=== PATIENT | male | born 1945 | race Caucasian/White ===

== ENCOUNTER 2017-06-06 15:01 | Inpatient (IN) | payer OTHER ==
--- NOTE | 2017-06-06 15:12 | PDOC ---
History of Present Illness - General Chief Complaint: Pain Stated Complaint: PAIN Time Seen by Provider: 06/06/17 15:12 Past History - Past Medical History Allergies/Adverse Reactions: Allergies Allergy/AdvReac Type Severity Reaction Status Date / Time No Known Allergies Allergy Verified 11/19/15 18:04 Home Medications: Ambulatory Orders Folic Acid - 1 mg PO DAILY #0 tablet 03/26/13 Aspirin [ASA -] 81 mg PO DAILY #0 12/04/14 Acetaminophen [Extra Strength Non-Aspirin] 500 mg PO QID PRN 11/17/15 Albuterol Sulfate [Proair Hfa -] 1 - 2 inh PO QID PRN 11/17/15 Clotrimazole/Betamet Diprop [Lotrisone -] 1 applic TP BID 11/17/15 Ergocalciferol (Vitamin D2) [Drisdol] 50,000 units PO WEEKLY 11/17/15 Guaifenesin [Mucinex] 1,200 mg PO Q12H PRN 11/17/15 Meloxicam [Mobic] 15 mg PO DAILY 11/17/15 Mometasone/Formoterol [Dulera 200 Mcg/5 Mcg Inhaler] 2 inh IH BID 11/17/15 Roflumilast [Daliresp] 500 mcg PO DAILY 11/17/15 Simvastatin [Zocor -] 20 mg PO DAILY 11/17/15 Tramadol HCl 50 mg PO TID #10 tablet 11/18/15 Tiotropium [place] [Spiriva Respimat] 2.5 mcg IH DAILY 11/20/15 Vitamin B Complex 1 each PO DAILY 11/20/15 Anemia: No Asthma: Yes Cancer: No (Prostate) Cardiac Disorders: Yes CVA: Yes (with speech problems.) COPD: Yes CHF: No Dementia: No Diabetes: No GI Disorders: No Disorders: No HTN: Yes Hypercholesterolemia: Yes Liver Disease: No Seizures: No Thyroid Disease: No - Surgical History Abdominal Surgery: Yes (hernia) Appendectomy: No Cardiac Surgery: No Cholecystectomy: No Lung Surgery: No Neurologic Surgery: No Orthopedic Surgery: Yes (R hip replacement in 2012.) - Immunization History Td Vaccination: Yes Immunization Up to Date: Yes - Psycho/Social/Smoking Cessation Hx Anxiety: No Suicidal Ideation: No Smoking Status: Yes Smoking History: Current every day smoker Have you smoked in the past 12 months: Yes Number of Cigarettes Smoked Daily: 10 'Breaking Loose' booklet given: 11/20/15 Hx Alcohol Use: Yes ("once and awhile now 1 or 2 beers") Drug/Substance Use Hx: No Substance Use Type: None Hx Substance Use Treatment: No
--- NOTE | 2017-06-06 15:19 | PDOC ---
History of Present Illness - General Chief Complaint: Pain Stated Complaint: PAIN Time Seen by Provider: 06/06/17 15:12 History Source: Patient, Significant Other - History of Present Illness Initial Comments: 06/06/17 16:39 Interview notable for being mostly handled by patient's girlfriend who is in total control of the patient care. Answers for him every question, claims that his dementia prevents him from answering truthfully and adequately. She was repeatedly asked to let the patient respond. 71M with pmh of cva x3, COPD-emphysema, metastatic prostate cancer s/p right hip endochondroma surgery, [place], HLD and hernia repair x2 as well as sigmoid diverticulosis ,presents for change in stool texture, dehydration, and right hip pain. 06/06/17 18:05 Past History - Past Medical History Allergies/Adverse Reactions: Allergies Allergy/AdvReac Type Severity Reaction Status Date / Time No Known Allergies Allergy Verified 06/06/17 15:23 Home Medications: Ambulatory Orders Folic Acid - 1 mg PO DAILY #0 tablet 03/26/13 Aspirin [ASA -] 81 mg PO DAILY #0 12/04/14 Acetaminophen [Extra Strength Non-Aspirin] 500 mg PO QID PRN 11/17/15 Albuterol Sulfate [Proair Hfa -] 1 - 2 inh PO QID PRN 11/17/15 Ergocalciferol (Vitamin D2) [Drisdol] 50,000 units PO WEEKLY 11/17/15 Meloxicam [Mobic] 15 mg PO DAILY 11/17/15 Mometasone/Formoterol [Dulera 200 Mcg/5 Mcg Inhaler] 2 inh IH BID 11/17/15 Roflumilast [Daliresp] 500 mcg PO DAILY 11/17/15 Simvastatin [Zocor -] 20 mg PO DAILY 11/17/15 Tiotropium [place] [Spiriva Respimat] 2.5 mcg IH DAILY 11/20/15 Vitamin B Complex 1 each PO DAILY 11/20/15 Tramadol HCl 50 mg PO TID PRN 06/06/17 Anemia: No Asthma: Yes Cancer: No (Prostate) Cardiac Disorders: Yes CVA: Yes (with speech problems.) COPD: Yes CHF: No Dementia: No Diabetes: No GI Disorders: No Disorders: No HTN: Yes Hypercholesterolemia: Yes Liver Disease: No Seizures: No Thyroid Disease: No - Surgical History Abdominal Surgery: Yes (hernia) Appendectomy: No Cardiac Surgery: No Cholecystectomy: No Lung Surgery: No Neurologic Surgery: No Orthopedic Surgery: Yes (R hip replacement in 2012.) - Immunization History Td Vaccination: Yes Immunization Up to Date: Yes - Psycho/Social/Smoking Cessation Hx Anxiety: No Suicidal Ideation: No Smoking Status: Yes Smoking History: Current every day smoker Have you smoked in the past 12 months: Yes Number of Cigarettes Smoked Daily: 10 'Breaking Loose' booklet given: 11/20/15 Hx Alcohol Use: Yes ("once and awhile now 1 or 2 beers") Drug/Substance Use Hx: No Substance Use Type: None Hx Substance Use Treatment: No ED Treatment Course - LABORATORY CBC & Chemistry Diagram: 06/06/17 16:05 06/06/17 16:05
[2017-06-06 15:26] VITALS: BMI 18.7
--- NOTE | 2017-06-06 16:02 | PDOC ---
Attending Attestation - Resident Resident Name: Villa Shaffer - ED Attending Attestation I have performed the following: I have examined & evaluated the patient, The case was reviewed & discussed with the resident, I agree w/resident's findings & plan, Exceptions are as noted - HPI HPI: The patient is a 71 yo M with a past medical history of multiple CVA events, femur fracture with right hip replacement presents with right hip pain s/p hip replacement surgery. As per the patients , she is overwhelmed taking care of the patient at home. She states the patient was recently admitted to [facility] but was discharged even though she is unable to care for him. The also states the patient is experiencing R hip pain but doesnt ask his PCP for pain medications. She states the patient is still able to make his own decisions and he doesnt want a home health aide. The patient denies chest pain, palpitations and lightheadedness. The patient denies nausea, vomiting, diarrhea and abdominal pain. PCP: Dr. Bloom - Physicial Exam PE: GENERAL: Awake, alert, and fully oriented, in no acute distress HEAD: No signs of trauma EYES: PERRLA, EOMI, sclera anicteric, conjunctiva clear ENT: Auricles normal inspection, hearing grossly normal, nares patent, oropharynx clear without exudates. Moist mucosa NECK: Normal ROM, supple, no lymphadenopathy, JVD, or masses LUNGS: Breath sounds equal, clear to auscultation bilaterally. No wheezes, and no crackles HEART: Regular rate and rhythm, normal S1 and S2, no murmurs, rubs or gallops ABDOMEN: Soft, nontender, normoactive bowel sounds. No guarding, no rebound. No masses EXTREMITIES: Normal range of motion, no edema. No clubbing or cyanosis. No cords, erythema. Tenderness to palpation of R hip. NEUROLOGICAL: Cranial nerves II through XII grossly intact. Normal speech, normal gait SKIN: Warm, Dry, normal turgor, no rashes or lesions noted. - Medical Decision Making Documentation prepared by Jackie Hilton, acting as certified medical coder for Con Noble MD/DO. <Jackie Hilton - Last Filed: 06/06/17 17:10> - Resident Resident Name: Villa Shaffer - ED Attending Attestation I have performed the following: I have examined & evaluated the patient, The case was reviewed & discussed with the resident, I agree w/resident's findings & plan, Exceptions are as noted - HPI HPI: 06/06/17 16:13 - Physicial Exam PE: 06/06/17 19:48 Right Hip Pain with range of motion and palpation, loose cough, coarse rhonchi. - Medical Decision Making 06/06/17 19:[address] Shaffer's Assessment and Plan, Patient's girlfriend is unable to care for him at home, they have no outside help, they have no family to help, he is falling more often and she is afraid to leave him alone and she just can' t manage him anylonger. 06/06/17 19:[address] Denis, who ask that we work the patient up completely and admit to Dr. Bloom. I subsequently spoke to Dr. Carnes, will admit to his serve and obtain CT Hip on the way to the floor. 06/06/17 19:59 Case discussed with both patient and his girlfriend and it is apparent to me that his dementia is worsening and he may not actually be able to make medical decisions any longer..... he can't remember much and he can't seem to tell time - how long he has been in a certain space. His hip pain is limiting his mobility and putting him at risk for falls. He may need both mental health and physical therapy evaluations as well as urologic and orthopedic consultations. 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 transplanted heart: [place] heart Associated angina: without angina Qualified Code(s): I25.10 - Atherosclerotic heart disease of [place] coronary artery without angina pectoris COPD (chronic obstructive pulmonary disease) Qualifiers: COPD type: unspecified COPD Qualified Code(s): J44.9 - Chronic obstructive pulmonary disease, unspecified - Discharge Dispostion Condition at time of disposition: Unchanged/Unknown - Referrals Referrals: Claude Bradshaw MD [Primary Care Provider] -
[2017-06-06] MEDS ORDERED: SODIUM CHLORIDE 1,000 ML IV STA (16:09)
[2017-06-06 16:10] LABS: BASOPHIL 0.9 % (0-2.0); EOSINOPHIL 2.3 % (0-4.5); MCH 29.2 pg (25.7-33.7); MCHC 32.9 g/dl (32.0-35.9); MEAN CELL VOLUME 88.7 fl (80-96); MEAN PLT VOLUME 8.8 fl (7.5-11.1); NEUTROPHILS 58.7 % (42.8-82.8); PLATELET COUNT 172 K/MM3 (134-434); RDW 16.4 % (11.9-15.9); WHITE BLOOD COUNT 5.5 K/mm3 (4.0-10.0)
[2017-06-06 16:37] LABS: ALBUMIN 3.9 g/dl (3.4-5.0); ALK PHOS 136 U/L (45-117); ANION GAP 10 (8-16); BILIRUBIN,TOTAL 0.3 mg/dL (0.2-1.0); CALCIUM 9.4 mg/dL (8.5-10.1); CO2 29 mmol/L (21-32); CREATININE 0.9 mg/dL (0.7-1.3); GLUCOSE,RANDOM 104 mg/dL (74-106); SGOT/AST 8 U/L (15-37); SGPT/ALT 19 U/L (12-78); TOT PROT 7.2 g/dl (6.4-8.2)
[2017-06-06 17:41] LABS: URINE APPEARANCE CLEAR; URINE BILIRUBIN NEGATIVE (NEGATIVE); URINE BLOOD NEGATIVE (NEGATIVE); URINE COLOR LTYELLOW; URINE GLUCOSE (UA) NEGATIVE (NEGATIVE); URINE KETONE NEGATIVE (NEGATIVE); URINE LEUK ESTERASE NEGATIVE (NEGATIVE); URINE NITRITE NEGATIVE (NEGATIVE); URINE PROTEIN NEGATIVE (NEGATIVE); URINE UROBILINOGEN NEGATIVE mg/dL (0.2-1.0)
[2017-06-06 18:10] LABS: URINE MARIJUANA THC NEGATIVE ng/ml (CUTOFF=50)
[2017-06-06 19:15] LABS: CALCIUM 9.5 mg/dL (8.5-10.1); PHOSPHOROUS 3.5 mg/dL (2.5-4.9)
[2017-06-06] MEDS ORDERED: ACETAMINOPHEN 325 MG TABLET (FP) PO PRN (20:19)
[2017-06-06] MEDS ORDERED: KETOROLAC TROMETHAMINE 30 MG/1 ML VIAL IVPUSH SCH (20:30)
[2017-06-06] MEDS: BUDESONIDE/FORMETEROL FUMARATE 80/4.5 mcg INHALER IH SCH (23:30)
[2017-06-07 07:50] LABS: MCH 28.7 pg (25.7-33.7); MCHC 32.9 g/dl (32.0-35.9); MEAN CELL VOLUME 87.3 fl (80-96); MEAN PLT VOLUME 9.2 fl (7.5-11.1); PLATELET COUNT 169 K/MM3 (134-434); RDW 16.3 % (11.9-15.9); WHITE BLOOD COUNT 7.3 K/mm3 (4.0-10.0)
[2017-06-07 08:03] LABS: ALBUMIN 3.7 g/dl (3.4-5.0); ANION GAP 5 (8-16); CALCIUM 9.5 mg/dL (8.5-10.1); CO2 31 mmol/L (21-32); CREATININE 0.7 mg/dL (0.7-1.3); GLUCOSE,RANDOM 81 mg/dL (74-106); SGOT/AST 9 U/L (15-37); SGPT/ALT 19 U/L (12-78)
[2017-06-07 08:04] LABS: ALK PHOS 134 U/L (45-117); BILIRUBIN,TOTAL 0.6 mg/dL (0.2-1.0); TOT PROT 6.6 g/dl (6.4-8.2)
[2017-06-07] MEDS ORDERED: PT OWN MED DRAWER 7, Y5N ONE (09:50)
[2017-06-07] MEDS: ROFLUMILAST 500 MCG TABLET PO SCH (11:09)
[2017-06-07] MEDS: BUDESONIDE/FORMETEROL FUMARATE 80/4.5 mcg INHALER IH SCH ×2 (11:09→21:47)
[2017-06-07] MEDS: ASPIRIN COATED 81 MG TABLET.EC PO SCH (11:10)
[2017-06-07] MEDS: TIOTROPIUM BROMIDE 18 MCG/INH (DEVICE W/ 5 CAPSULES) IH SCH (11:10)
--- NOTE | 2017-06-07 11:30 | HP ---
Admitting History and Physical - Primary Care Physician PCP: Claude Bradshaw I - Admission History of Present Illness: 71M with pmh of cva x3, COPD-emphysema, metastatic prostate cancer s/p right hip surgery right hip endochrondroma and replacement, [place], HLD and hernia repair x2 as well as sigmoid diverticulosis ,presents for right hip pain.patient was at [facility] for rehab after the hip surgery per patient he says the pain in right hip and leg started a week a ago and then it got severe so he came to ER patient not able to tell me too much more information i called the and she says that he having right hip and leg pain and per he was having loose stools and low grade temp as home ,she states that everytime he eats he has loose bm no nausea no abdominal pain. today patient complaining of right hip pain History Source: Patient, Family Member Limitations to Obtaining History: Poor Historian - Past Medical History REPORTING DEVELOPER: Yes: CVA Cardiovascular: Yes: Hyperlipdemia, [place] Pulmonary: Yes: Asthma, COPD Renal/: Yes: Cancer (prostate) - Smoking History Smoking history: Current every day smoker Have you smoked in the past 12 months: Yes Aproximately how many cigarettes per day: 4 - Alcohol/Substance Use Hx Alcohol Use: Yes ("once and awhile now 1 or 2 beers") History of Substance Use: reports: None - Social History ADL: Family Assistance History of Recent Travel: No Home Medications - Allergies Allergies/Adverse Reactions: Allergies Allergy/AdvReac Type Severity Reaction Status Date / Time No Known Allergies Allergy Verified 06/06/17 15:23 - Home Medications Home Medications: Ambulatory Orders Folic Acid - 1 mg PO DAILY #0 tablet 03/26/13 Aspirin [ASA -] 81 mg PO DAILY #0 12/04/14 Acetaminophen [Extra Strength Non-Aspirin] 500 mg PO QID PRN 11/17/15 Albuterol Sulfate [Proair Hfa -] 1 - 2 inh PO QID PRN 11/17/15 Ergocalciferol (Vitamin D2) [Drisdol] 50,000 units PO WEEKLY 11/17/15 Meloxicam [Mobic] 15 mg PO DAILY 11/17/15 Mometasone/Formoterol [Dulera 200 Mcg/5 Mcg Inhaler] 2 inh IH BID 11/17/15 Roflumilast [Daliresp] 500 mcg PO DAILY 11/17/15 Simvastatin [Zocor -] 20 mg PO DAILY 11/17/15 Tiotropium [place] [Spiriva Respimat] 2.5 mcg IH DAILY 11/20/15 Vitamin B Complex 1 each PO DAILY 11/20/15 Tramadol HCl 50 mg PO TID PRN 06/06/17 Review of Systems - Review of Systems Musculoskeletal: reports: Other (right hip pain) Physical Examination Vital Signs: Vital Signs Temperature 98.3 F 06/07/17 09:48 Pulse Rate 73 06/07/17 09:48 Respiratory Rate 18 06/07/17 09:48 Blood Pressure 104/53 06/07/17 09:48 O2 Sat by Pulse Oximetry (%) 99 06/06/17 22:35 Constitutional: Yes: Calm, Thin Neck: Yes: Trachea Midline Cardiovascular: Yes: Regular Rate and Rhythm, S1, S2 Respiratory: Yes: CTA Bilaterally Gastrointestinal: Yes: Normal Bowel Sounds, Soft Musculoskeletal: Yes: Other (right hip tenderness on palpation) Edema: No Neurological: Yes: Alert, Oriented Labs: CBC, BMP 06/07/17 06:30 06/07/17 06:30 Imaging - Results X-ray: Report Reviewed Cat Scan: Report Reviewed Problem List - Problems (1) Hip pain, right Assessment/Plan: ortho eval PT eval as well Code(s): M25.551 - PAIN IN RIGHT HIP (2) Prostate CA Assessment/Plan: check PSA Code(s): C61 - MALIGNANT NEOPLASM OF PROSTATE (3) COPD (chronic obstructive pulmonary disease) Assessment/Plan: bronchodilators Code(s): J44.9 - CHRONIC OBSTRUCTIVE PULMONARY DISEASE, UNSPECIFIED Qualifiers : COPD type: unspecified COPD Qualified Code(s): J44.9 - Chronic obstructive pulmonary disease, unspecified (4) Coronary artery disease Assessment/Plan: aspirin Code(s): I25.10 - ATHSCL HEART DISEASE OF [place] CORONARY ARTERY W/O ANG PCTRS Qualifiers: Coronary Disease-Associated Artery/Lesion type: unspecified vessel or lesion type [place] vs. transplanted heart: [place] heart Associated angina: without angina Qualified Code(s): I25.10 - Atherosclerotic heart disease of [place] coronary artery without angina pectoris Assessment/Plan will monitor for loose BM SCD to both legs for dvt ppx
--- NOTE | 2017-06-07 17:17 | PN ---
Progress Note (short form) - Note Progress Note: Pt seen and examined. He is a 71 yo Male pt with metastatic prostate CA who c/o 1-2 weeks of increasing right hip pain. Denies and recent h/o trauma, or infection. He had a right THR at [facility] by Dr Ivye this year, 2016. He did well post op, no complications, was feeling great until 1-2 weeks ago.He was having significant pain with ambulation. Now he states his pain is much better, he is able to ambulate. PE RLE looks fine, no malangulation, shortening, or malrotation. No signs of trauma. NVI Good, pain free ROM at the right hip, knee, ankle, foot. Strength of RLE good. Incisions well healed. The pt has significant tenderness over the right hip bursa. Xrays Look good. A right THR prosthesis is in a good position, no obvious loosening, no obvious lytic lesions or signs of metastatic perprosthetic involvement. Imp Acute right hip bursitis. Rec We will try to avoid the right hip bursa cortisone injection if possible. P.T. PRN, WBAT. The pt can be DC'd as per ortho pov, NTD. F/U with Dr Ivey as an out pt.
[2017-06-07] MEDS: HEPARIN NA (PORCINE) 5,000 UNITS/ML 1ML VIAL SQ SCH (21:47)
[2017-06-07] MEDS: traMADol HCL 50 MG TABLET PO PRN (21:47)
[2017-06-07] MEDS: ATORVASTATIN CA 20 MG TABLET (FP) PO SCH (21:48)
--- NOTE | 2017-06-08 08:25 | PN ---
Progress Note, Physician History of Present Illness: SITTING IN CHAIR - Current Medication List Current Medications: Active Medications Acetaminophen (Tylenol -) 650 mg PO Q6H PRN PRN Reason: FEVER OR PAIN Aspirin (Ecotrin -) 81 mg PO DAILY [facility] Last Admin: 06/07/17 11:10 Dose: 81 mg Atorvastatin Calcium (Lipitor -) 20 mg PO HS [facility] Last Admin: 06/07/17 21:48 Dose: 20 mg Budesonide/Formoterol Fumarate (Symbicort 80/4.5mcg -) 2 puff IH BID [facility] Last Admin: 06/07/17 21:47 Dose: 2 puff Heparin Sodium (Porcine) (Heparin -) 5,000 unit SQ BID [facility] Last Admin: 06/07/17 21:47 Dose: 5,000 unit Roflumilast (Daliresp -) 500 mcg PO DAILY [facility] Last Admin: 06/07/17 11:09 Dose: 500 mcg Tiotropium [place] (Spiriva -) 1 puff IH DAILY [facility] Last Admin: 06/07/17 11:10 Dose: 1 puff Tramadol HCl (Ultram -) 50 mg PO Q8H PRN PRN Reason: PAIN Last Admin: 06/07/17 21:47 Dose: 50 mg - Objective Vital Signs: Vital Signs Temperature 97.9 F 06/08/17 06:00 Pulse Rate 66 06/08/17 06:00 Respiratory Rate 19 06/08/17 06:00 Blood Pressure 119/62 06/08/17 06:00 O2 Sat by Pulse Oximetry (%) 95 06/07/17 20:50 Cardiovascular: Yes: Regular Rate and Rhythm Respiratory: Yes: Regular, CTA Bilaterally Gastrointestinal: Yes: Normal Bowel Sounds, Soft Labs: CBC, BMP 06/07/17 06:30 06/07/17 06:30 Assessment/Plan - Problems (1) Hip pain, right Assessment/Plan: ortho eval noted-- PT eval as well Code(s): M25.551 - PAIN IN RIGHT HIP (2) Prostate CA Assessment/Plan: check PSA Code(s): C61 - MALIGNANT NEOPLASM OF PROSTATE (3) COPD (chronic obstructive pulmonary disease) Assessment/Plan: bronchodilators Code(s): J44.9 - CHRONIC OBSTRUCTIVE PULMONARY DISEASE, UNSPECIFIED Qualifiers : COPD type: unspecified COPD Qualified Code(s): J44.9 - Chronic obstructive pulmonary disease, unspecified (4) Coronary artery disease Assessment/Plan: aspirin Code(s): I25.10 - ATHSCL HEART DISEASE OF [place] CORONARY ARTERY W/O ANG PCTRS Qualifiers: Coronary Disease-Associated Artery/Lesion type: unspecified vessel or lesion type [place] vs. transplanted heart: [place] heart Associated angina: without angina Qualified Code(s): I25.10 - Atherosclerotic heart disease of [place] coronary artery without angina pectoris Assessment/Plan will monitor for loose BM
--- NOTE | 2017-06-08 09:19 | PN ---
Progress Note (short form) - Note Progress Note: Pt feels better this morning, less pain in the right hip area both sitting and with weight bearing. He is able to ambulate with a walker without a significant amount of pain. Plan: He is being DC'd today. He will con't WBAT with walker. He will F/U with Dr Ivey this week or next.
[2017-06-08] MEDS ORDERED: PT OWN MED DRAWER 7, Y5N ONE (09:55)
[2017-06-08] MEDS: ASPIRIN COATED 81 MG TABLET.EC PO SCH (09:56)
[2017-06-08] MEDS: HEPARIN NA (PORCINE) 5,000 UNITS/ML 1ML VIAL SQ SCH ×2 (09:56→21:37)
[2017-06-08] MEDS: BUDESONIDE/FORMETEROL FUMARATE 80/4.5 mcg INHALER IH SCH ×2 (09:56→21:37)
[2017-06-08] MEDS: TIOTROPIUM BROMIDE 18 MCG/INH (DEVICE W/ 5 CAPSULES) IH SCH (09:56)
[2017-06-08] MEDS: ROFLUMILAST 500 MCG TABLET PO SCH (09:56)
[2017-06-08] MEDS: traMADol HCL 50 MG TABLET PO PRN (21:37)
[2017-06-08] MEDS: ATORVASTATIN CA 20 MG TABLET (FP) PO SCH (21:37)
[2017-06-09] MEDS: ASPIRIN COATED 81 MG TABLET.EC PO SCH (09:41)
[2017-06-09] MEDS: HEPARIN NA (PORCINE) 5,000 UNITS/ML 1ML VIAL SQ SCH ×2 (09:41→21:40)
[2017-06-09] MEDS: ROFLUMILAST 500 MCG TABLET PO SCH (09:41)
[2017-06-09] MEDS: BUDESONIDE/FORMETEROL FUMARATE 80/4.5 mcg INHALER IH SCH ×2 (09:41→21:40)
[2017-06-09] MEDS: TIOTROPIUM BROMIDE 18 MCG/INH (DEVICE W/ 5 CAPSULES) IH SCH (09:42)
--- NOTE | 2017-06-09 10:42 | DS ---
Physical Examination Vital Signs: Vital Signs Temperature 97.6 F 06/09/17 06:24 Pulse Rate 61 06/09/17 09:19 Respiratory Rate 18 06/09/17 09:19 Blood Pressure 111/58 06/09/17 09:19 O2 Sat by Pulse Oximetry (%) 97 06/08/17 20:55 awake alert oriented no distress Constitutional: Yes: Calm, Thin Cardiovascular: Yes: Regular Rate and Rhythm, S1, S2 Respiratory: Yes: CTA Bilaterally Gastrointestinal: Yes: Normal Bowel Sounds, Soft Edema: No Neurological: Yes: Alert, Oriented Labs: CBC, BMP 06/07/17 06:30 06/07/17 06:30 Discharge Summary Reason For Visit: INTRACTABLE PAIN,ARTHRALGIA OF HIP,DYSPHAGIA Current Active Problems Generalized muscle weakness (Acute) Hip pain, right (Acute) Intractable pain (Acute) Asthma (Chronic) COPD (chronic obstructive pulmonary disease) (Chronic) Coronary artery disease (Chronic) Dysarthria as late effect of cerebrovascular accident (CVA) (Chronic) 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) (Chronic) HLD (hyperlipidemia) (Chronic) Prostate CA (Chronic) Hospital Course: PCP: Claude Bradshaw I - Admission History of Present Illness: 71M with pmh of cva x3, COPD-emphysema, metastatic prostate cancer s/p right hip surgery right hip endochrondroma and replacement, [place], HLD and hernia repair x2 as well as sigmoid diverticulosis ,presents for right hip pain.patient was at [facility] for rehab after the hip surgery per patient he says the pain in right hip and leg started a week a ago and then it got severe so he came to ER patient not able to tell me too much more information i called the and she says that he having right hip and leg pain and per he was having loose stools and low grade temp as home ,she states that everytime he eats he has loose bm no nausea no abdominal pain. today patient complaining of right hip pain History Source: Patient, Family Member Limitations to Obtaining History: Poor Historian - Past Medical History EDUCATIONAL TECHNOLOGY SPECIALIST: Yes: CVA Cardiovascular: Yes: Hyperlipdemia, [place] Pulmonary: Yes: Asthma, COPD pateint had no loose BM during hospital stay seen by ortho right hip bursitis, feeling better seen by ortho much WBAT, xray of hip and CT scan done - s/p Right THR plan to go for rehab Condition: Improved - Instructions Referrals: Claude Bradshaw MD [Primary Care Provider] - Disposition: [facility] F[facility]ILITY - Home Medications Comprehensive Discharge Medication List: Ambulatory Orders Folic Acid - 1 mg PO DAILY #0 tablet 03/26/13 Aspirin [ASA -] 81 mg PO DAILY #0 12/04/14 Acetaminophen [Extra Strength Non-Aspirin] 500 mg PO QID PRN 11/17/15 Albuterol Sulfate [Proair Hfa -] 1 - 2 inh PO QID PRN 11/17/15 Ergocalciferol (Vitamin D2) [Drisdol] 50,000 units PO WEEKLY 11/17/15 Meloxicam [Mobic] 15 mg PO DAILY 11/17/15 Mometasone/Formoterol [Dulera 200 Mcg/5 Mcg Inhaler] 2 inh IH BID 11/17/15 Roflumilast [Daliresp] 500 mcg PO DAILY 11/17/15 Simvastatin [Zocor -] 20 mg PO DAILY 11/17/15 Tiotropium [place] [Spiriva Respimat] 2.5 mcg IH DAILY 11/20/15 Vitamin B Complex 1 each PO DAILY 11/20/15 Tramadol HCl 50 mg PO TID PRN 06/06/17
[2017-06-09] MEDS: ATORVASTATIN CA 20 MG TABLET (FP) PO SCH (21:40)
[2017-06-09] MEDS: traMADol HCL 50 MG TABLET PO PRN (21:40)
[2017-06-10] MEDS: ROFLUMILAST 500 MCG TABLET PO SCH (09:28)
[2017-06-10] MEDS: ASPIRIN COATED 81 MG TABLET.EC PO SCH (09:29)
[2017-06-10] MEDS: BUDESONIDE/FORMETEROL FUMARATE 80/4.5 mcg INHALER IH SCH (09:30)
[2017-06-10] MEDS: TIOTROPIUM BROMIDE 18 MCG/INH (DEVICE W/ 5 CAPSULES) IH SCH (09:30)
[2017-06-10] MEDS: HEPARIN NA (PORCINE) 5,000 UNITS/ML 1ML VIAL SQ SCH (09:33)
--- NOTE | 2017-06-10 09:54 | PN ---
Progress Note (short form) - Note Progress Note: Ortho Pt seen and examined. no complaints decr pain, able to ambulate without difficulty nvi a/p NTD d/c today f/u with Dr. Ivey d/w Dr. Kurtz
--- NOTE | 2017-06-10 12:40 | PN ---
Progress Note, Physician Chief Complaint: patient seen today no complains with ambulation felling ok no complains of loose stools as well awaiting to go to rehab - Current Medication List Current Medications: Active Medications Acetaminophen (Tylenol -) 650 mg PO Q6H PRN PRN Reason: FEVER OR PAIN Aspirin (Ecotrin -) 81 mg PO DAILY [facility] Last Admin: 06/10/17 09:29 Dose: 81 mg Atorvastatin Calcium (Lipitor -) 20 mg PO HS [facility] Last Admin: 06/09/17 21:40 Dose: 20 mg Budesonide/Formoterol Fumarate (Symbicort 80/4.5mcg -) 2 puff IH BID [facility] Last Admin: 06/10/17 09:30 Dose: 2 puff Heparin Sodium (Porcine) (Heparin -) 5,000 unit SQ BID [facility] Last Admin: 06/10/17 09:33 Dose: Not Given Roflumilast (Daliresp -) 500 mcg PO DAILY [facility] Last Admin: 06/10/17 09:28 Dose: 500 mcg Tiotropium [place] (Spiriva -) 1 puff IH DAILY [facility] Last Admin: 06/10/17 09:30 Dose: 1 puff Tramadol HCl (Ultram -) 50 mg PO Q8H PRN PRN Reason: PAIN Last Admin: 06/09/17 21:40 Dose: 50 mg - Objective Vital Signs: Vital Signs Temperature 97.0 F L 06/10/17 06:00 Pulse Rate 51 L 06/10/17 06:00 Respiratory Rate 20 06/09/17 23:30 Blood Pressure 102/61 06/10/17 06:00 O2 Sat by Pulse Oximetry (%) 98 06/09/17 21:00 Constitutional: Yes: Calm, Thin Cardiovascular: Yes: Regular Rate and Rhythm, S1, S2 Respiratory: Yes: CTA Bilaterally Gastrointestinal: Yes: Normal Bowel Sounds, Soft Edema: No Neurological: Yes: Alert, Oriented Labs: CBC, BMP 06/07/17 06:30 06/07/17 06:30 Problem List - Problems (1) Hip pain, right Code(s): M25.551 - PAIN IN RIGHT HIP (2) Prostate CA Code(s): C61 - MALIGNANT NEOPLASM OF PROSTATE (3) COPD (chronic obstructive pulmonary disease) Code(s): J44.9 - CHRONIC OBSTRUCTIVE PULMONARY DISEASE, UNSPECIFIED Qualifiers : COPD type: unspecified COPD Qualified Code(s): J44.9 - Chronic obstructive pulmonary disease, unspecified (4) Coronary artery disease Code(s): I25.10 - ATHSCL HEART DISEASE OF [place] CORONARY ARTERY W/O ANG PCTRS Qualifiers: Coronary Disease-Associated Artery/Lesion type: unspecified vessel or lesion type [place] vs. transplanted heart: [place] heart Associated angina: without angina Qualified Code(s): I25.10 - Atherosclerotic heart disease of [place] coronary artery without angina pectoris
[2017-06-10 14:25] VITALS: BP 103/65; PULSE 64; TEMP 98
== END 2017-06-10 15:21 | DRG 558 ==
LOC: JER 15:01 → JERBED 19:46 → J6S 22:28
PROVIDERS: ADMIT Family Medicine; ATTEND Family Medicine
DX: M70.71 Other bursitis of hip, right hip (principal); M25.551 Pain in right hip; C61 Malignant neoplasm of prostate; J44.9 Chronic obstructive pulmonary disease, unspecified; I25.10 Atherosclerotic heart disease of native coronary artery without angina pectoris; J45.909 Unspecified asthma, uncomplicated; E78.5 Hyperlipidemia, unspecified; F17.210 Nicotine dependence, cigarettes, uncomplicated
CPT/HCPCS: 36415; 73502-TC-RT; 73700-TC-RT; 80053; 80307; 81003; 82310; 83690; 84100; 84153; 85025; 85027; 97116-GP; 97161-GP; 99283-25; J1644